=== PATIENT | male | born 1990 ===

== ENCOUNTER 2017-03-27 07:26 | Emergency (ER) | payer OTHER ==
[2017-03-27 07:51] VITALS: BP 117/71; PULSE 96; RESP 18; TEMP 98.2; O2SAT 98; BMI 37.5
--- NOTE | 2017-03-27 08:04 | ED PDOC ---
Arrival/HPI - General Chief Complaint: Abnormal Skin Integrity Time Seen by Provider: 03/27/17 07:31 Historian: Patient - History of Present Illness Narrative History of Present Illness (Text): 03/27/17 07:58 A 26 year old male, who denies any significant past medical history, presents to the emergency department complaining of multiple rashes to the right arm and right lower back. Patient reports he was at a friends house 3 days ago and believes he was bitten by some kind of bug. Patient states he is unsure of what kind of bug bit him because he did not realize he was bitten under the next day when he developed pain and notices the redness to the skin. Patient denies any fever, chills, nausea, vomiting, or any other complaints at this time. PMD: Dr. Colindres Time/Duration: Other (3 days) Symptom Onset: Gradual Symptom Course: Worsening Quality: Other Activities at Onset: Rest Context: Other (friends home) Past Medical History - Provider Review Nursing Documentation Reviewed: Yes - Psychiatric Hx Substance Use: Yes Family/Social History - Physician Review Nursing Documentation Reviewed: Yes Family/Social History: Unknown Family HX Smoking Status: Light Smoker < 10 Cigarettes Daily Hx Alcohol Use: Yes Frequency of alcohol use: Socially Hx Substance Use: Yes Substance used: pot Allergies/Home Meds Allergies/Adverse Reactions: Allergies No Known Allergies Allergy (Verified 03/27/17 07:46) Review of Systems - Physician Review All systems were reviewed & negative as marked: Yes - Review of Systems Constitutional: absent: Fevers, Other (chills) Gastrointestinal: absent: Nausea, Vomiting Skin: Rash Physical Exam - Physical Exam Narrative Physical Exam (Text): Constitutional: No acute distress. Head: Normocephalic. Atraumatic. Eyes: PERRL. ENT: Moist mucous membranes. Neck: Supple. Cardiovascular: Regular rate. Chest: No tenderness. Respiratory: Clear to auscultation bilaterally. GI: Soft. Nontender. Nondistended. Back: No CVA tenderness. Musculoskeletal: No tenderness or swelling of extremities. Skin: Central wound with surround erythema and induration with tenderness to palpation to the right forearm but no fluctuance or drainage (even when patient squeezed). Erythema around the right elbow without restriction in range of motion. Central wound with surround erythema which tenderness to palpation to the right flank but no fluctuance or induration or drainage. Neurologic: Alert, no focal deficit. Vital Signs Reviewed: Yes Vital Signs Temp Pulse Resp BP Pulse Ox 03/27/17 07:46 98.2 F 96 H 18 117/71 98 Temperature: Afebrile Blood Pressure: Normal Pulse: Regular Respiratory Rate: Normal Appearance: Positive for: Well-Appearing, Non-Toxic, Comfortable Pain Distress: None Mental Status: Positive for: Alert and Oriented X 3 Medical Decision Making ED Course and Treatment: 03/27/17 07:58 Impression: A 26 year old male with multiple rashes which appear to be due to bug bite. Differential Diagnosis include but are not limited to: bug bite Plan: -- Finger Stick -- Reassess and disposition Progress Notes: 03/27/17 08:08 Patient finger stick is 74. On re-evaluation, the patient is in no acute distress. I have discussed the results and plan with the patient, who expresses understanding. Patient in agreement with plan to discharged home. Patient is stable for discharge. Patient was instructed to follow up with physician/clinic in 1-2 days or return if symptoms worsen or new concerning symptoms arise. - Scribe Statement The provider has reviewed the documentation as recorded by the Scribe Wolfgang Headley Provider Scribe Attestation: All medical record entries made by the Scribe were at my direction and personally dictated by me. I have reviewed the chart and agree that the record accurately reflects my personal performance of the history, physical exam, medical decision making, and the department course for this patient. I have also personally directed, reviewed, and agree with the discharge instructions and disposition. Disposition/Present on Arrival - Present on Arrival Any Indicators Present on Arrival: No History of DVT/PE: No History of Uncontrolled Diabetes: No Urinary Catheter: No History of Decub. Ulcer: No History Surgical Site Infection Following: None - Disposition Have Diagnosis and Disposition been Completed?: Yes Diagnosis: Bug bite with infection Disposition: HOME/ ROUTINE Disposition Time: 08:08 Patient Plan: Discharge Patient Problems: Current Active Problems Problem Status Onset Bug bite with infection Acute Condition: STABLE Discharge Instructions (ExitCare): Insect Bite or Sting (ED) Prescriptions: Cephalexin [Keflex] 500 mg PO TID #30 capsule Sulfamethoxazole/Trimethoprim [Bactrim DS 800 mg-160 mg] 1 tab PO BID #20 tab Referrals: Juan F Colindres MD [Primary Care Provider] - Follow up with primary Forms: WORK NOTE
== END 2017-03-27 08:33 | disposition home or self-care (01) ==
LOC: ED 07:26
DX: S50.861A Insect bite (nonvenomous) of right forearm, initial encounter (principal); W57.XXXA Bitten or stung by nonvenomous insect and other nonvenomous arthropods, initial encounter; Y92.009 Unspecified place in unspecified non-institutional (private) residence as the place of occurrence of the external cause; F17.210 Nicotine dependence, cigarettes, uncomplicated

== ENCOUNTER 2017-04-08 08:58 | Inpatient (IN) | payer OTHER ==
[2017-04-08] MEDS ORDERED: Sodium Chloride 0.9% 1,000 ML IV ONE (09:26)
[2017-04-08] MEDS ORDERED: DiphenhydrAMINE 50 mg/ml Inj IVP ONE (09:26)
--- NOTE | 2017-04-08 09:28 | ED PDOC ---
Arrival/HPI - General Chief Complaint: Allergic Reaction Time Seen by Provider: 04/08/17 09:11 Historian: Patient - History of Present Illness Narrative History of Present Illness (Text): 04/08/17 09:25 A 26 year old male presents to the emergency department complaining of a progressively worsening itchy rash throughout his body since last night. Patient reports his symptom began after taking Doxycycline yesterday night at 21 :00. He states this medication was prescribed to him by his PMD to treat a spider bite. Patient denies any fever, chills, nausea, vomiting, diarrhea, abdominal pain, chest pain, shortness of breath, difficulty swallowing or any other complaints. PMD: Dr. Colindres Time/Duration: Other (Last night) Symptom Course: Unchanged Quality: Other Context: Home Associated Symptoms (Text): 04/08/17 09:34 Patient was bitten by an unknown insect approximately 2 weeks ago. He was seen in the emergency department and treated with Keflex and Bactrim. He states that the right forearm insect bite did not improve and he saw his PMD Dr. Colindres who prescribed doxycycline. He took doxycycline for the first time last night and overnight developed a severe generalized drug rash. No dyspnea or dysphagia. Past Medical History - Provider Review Nursing Documentation Reviewed: Yes - Cardiac Hx Cardiac Disorders: No - Pulmonary Hx Respiratory Disorders: No - Neurological Hx Neurological Disorder: No - HEENT Hx HEENT Disorder: No - Renal Hx Renal Disorder: No - Endocrine/Metabolic Hx Endocrine Disorders: No - Hematological/Oncological Hx Blood Disorders: No - Integumentary Other/Comment: SKIN INFECTION - Musculoskeletal/Rheumatological Hx Musculoskeletal Disorders: No - Gastrointestinal Hx Gastrointestinal Disorders: No - Genitourinary/Gynecological Hx Genitourinary Disorders: No - Psychiatric Hx Psychophysiologic Disorder: No Hx Substance Use: Yes Family/Social History - Physician Review Nursing Documentation Reviewed: Yes Family/Social History: No Known Family HX Smoking Status: Light Smoker < 10 Cigarettes Daily Hx Alcohol Use: Yes Frequency of alcohol use: Socially Hx Substance Use: Yes Substance used: pot Allergies/Home Meds Allergies/Adverse Reactions: Allergies No Known Allergies Allergy (Verified 04/08/17 09:08) Home Medications: Home Meds Medication Instructions Recorded Confirmed Doxycycline Hyclate [Doryx] 100 mg PO Q12 04/08/17 04/08/17 Review of Systems - Physician Review All systems were reviewed & negative as marked: Yes - Review of Systems Constitutional: absent: Fatigue, Fevers, Night Sweats ENT: absent: Sore Throat Respiratory: absent: SOB, Other (Difficulty swallowing) Cardiovascular: absent: Chest Pain Gastrointestinal: absent: Abdominal Pain, Diarrhea, Nausea, Vomiting Skin: Rash (itchy rash throughout body) Physical Exam Vital Signs Reviewed: Yes Vital Signs Temp Pulse Resp BP Pulse Ox 04/08/17 13:18 91 H 18 121/61 99 04/08/17 13:12 89 18 119/58 L 04/08/17 12:05 89 18 119/58 L 99 04/08/17 11:13 99.4 F 96 H 18 117/52 L 99 04/08/17 10:13 101.6 F H 103 H 16 115/48 L 97 04/08/17 09:10 100.7 F H 118 H 17 99/51 L 98 Temperature: Febrile Blood Pressure: Hypotensive Pulse: Tachycardic Respiratory Rate: Normal Appearance: Positive for: Well-Appearing, Non-Toxic, Comfortable Pain Distress: None Mental Status: Positive for: Alert and Oriented X 3 - Systems Exam Head: Present: Atraumatic, Normocephalic Pupils: Present: PERRL Extroacular Muscles: Present: EOMI Conjunctiva: Present: Normal Mouth: Present: Moist Mucous Membranes, Other (Hard palate has some minimal vesicles) Pharnyx: Present: Normal. No: ERYTHEMA, EXUDATE, TONSILS ENLARGED, Peritonsilar Swelling, Uvular Deviation, Soft Palate/Uvular Edema Respiratory/Chest: Present: Clear to Auscultation, Good Air Exchange. No: Respiratory Distress, Accessory Muscle Use, Wheezes Cardiovascular: Present: Regular Rate and Rhythm, Normal S1, S2. No: Murmurs Neurological: Present: GCS=15, CN II-XII Intact, Speech Normal Skin: Present: Warm, Dry, Rashes (flat erythematous pruritic rash, consistent with drug rash), Other (Right forearm 3 cm in diameter erythematous bite with mild induration and no abscess) Psychiatric: Present: Alert, Oriented x 3, Normal Insight, Normal Concentration Medical Decision Making ED Course and Treatment: 04/08/17 09:25 Impression: A 26 year old male with a itchy rash throughout his body. Patient notes symptom began after taking Doxycycline for a spider bite. Plan: -- Benadryl, Solumedrol and IV fluids -- Reassess and disposition Progress Notes: 04/08/17 10:17 Patient's temperature has increased. Blood work has been ordered 04/08/17 11:57 EKG shows sinus tachycardia rate [address] or T-wave changes 04/08/17 11:[address] Colindres who refers to the hospitalist for admission. Discussed with Dr.I Villa who accepts to her service. Discussed with who treated the patient in the emergency department 04/08/17 13:52 Antibiotic choice left to infectious disease - Lab Interpretations Lab Results: 04/08/17 10:20 04/08/17 11:07 Lab Results 04/08/17 11:38: Urine Color Yellow, Urine Appearance Clear, Urine pH 6.0, Ur Specific Dudley 1.020, Urine Protein Negative, Urine Glucose (UA) Negative, Urine Ketones Negative, Urine Blood Negative, Urine Nitrate Negative, Urine Bilirubin Negative, Urine Urobilinogen 0.2, Ur Leukocyte Esterase Negative 04/08/17 11:07: Sodium 134, Chloride 105, Potassium 4.1, Carbon Dioxide 22, Anion Gap 11, BUN 15, Creatinine 1.2, Est GFR ( Amer) > 60, Est GFR (Non- Af Amer) > 60, Random Glucose 108, Calcium 9.0, Total Bilirubin 0.9, AST 24, ALT 45, Alkaline Phosphatase 74, Total Protein 6.6, Albumin 3.5, Globulin 3.1, Albumin/Globulin Ratio 1.1 04/08/17 10:20: pO2 157 H, VBG pH 7.44 H, VBG pCO2 33.0 L, VBG HCO3 22.4, VBG Total CO2 23.4, VBG O2 Sat (Calc) 100.1 H, VBG Base Excess -1.1 L, VBG Potassium 4.3, Sodium 135.0, Chloride 106.0, Glucose 106, Lactate 2.6 H, FiO2 21.0, Venous Blood Potassium 4.3 04/08/17 10:20: WBC 13.1 H, RBC 4.31, Hgb 12.4 L, Hct 36.4 L, MCV 84.5, MCH 28.8 , MCHC 34.1, RDW 13.1, Plt Count 270, MPV 10.6, Neutrophils % (Manual) 97 H, Lymphocytes % (Manual) 2 L, Monocytes % (Manual) 1, Toxic Granulation 1+, Platelet Evaluation Normal, Hypochromasia 2+, Rouleaux 1+ - RAD Interpretation Radiology Orders: 04/08/17 11:02 CHEST PORTABLE [RAD] Stat Chest 1 view shows no infiltrate effusion or cardiomegaly Plaster Patternmaker: ED Physician - Medication Orders Current Medication Orders: Diphenhydramine HCl (Benadryl) 25 mg PO Q6 PRN PRN Reason: Itching / Pruritus Famotidine (Pepcid) 20 mg IVP DAILY CONOR Last Admin: 04/08/17 13:43 Dose: 20 mg Sodium Chloride (Sodium Chloride 0.9%) 1,000 mls @ 100 mls/hr IV .Q10H CONOR Last Admin: 04/08/17 13:43 Dose: 100 mls/hr Discontinued Medications Acetaminophen (Tylenol 325mg Tab) 650 mg PO STAT STA Stop: 04/08/17 09:56 Last Admin: 04/08/17 10:10 Dose: 650 mg Diphenhydramine HCl (Benadryl) 50 mg IVP ONCE ONE Stop: 04/08/17 09:27 Last Admin: 04/08/17 09:33 Dose: 50 mg Sodium Chloride (Sodium Chloride 0.9%) 1,000 mls @ 500 mls/hr IV ONCE ONE Stop: 04/08/17 11:25 Last Admin: 04/08/17 09:35 Dose: 500 mls/hr Sodium Chloride 3,000 ml/ IV (SUPPLIES) 3,000 mls @ 6,967.2 mls/hr IV ONCE ONE PRN Reason: 60 ML/KG/HR Stop: 04/08/17 11:03 Last Admin: 04/08/17 11:24 Dose: 6,967.2 mls/hr Methylprednisolone (Solu-Medrol) 125 mg IVP ONCE ONE Stop: 04/08/17 09:27 Last Admin: 04/08/17 09:34 Dose: 125 mg - Catalinaibe Statement The provider has reviewed the documentation as recorded by the Cherie Johnson Provider Scribe Attestation: All medical record entries made by the aCtalinaibmarcos were at my direction and personally dictated by me. I have reviewed the chart and agree that the record accurately reflects my personal performance of the history, physical exam, medical decision making, and the department course for this patient. I have also personally directed, reviewed, and agree with the discharge instructions and disposition. Disposition/Present on Arrival - Present on Arrival Any Indicators Present on Arrival: No History of DVT/PE: No History of Uncontrolled Diabetes: No Urinary Catheter: No History of Decub. Ulcer: No History Surgical Site Infection Following: None - Disposition Have Diagnosis and Disposition been Completed?: Yes Diagnosis: Guevara-Luis syndrome, Sepsis, Leukocytosis, Allergic reaction Disposition: HOSPITALIZED Disposition Time: 11:51 Patient Plan: Admission Patient Problems: Current Active Problems Problem Status Onset Allergic reaction Acute Leukocytosis Acute Sepsis Acute Guevara-Luis syndrome Acute Condition: FAIR
[2017-04-08 10:47] LABS: HEMATOCRIT 36.4 % (42.0-52.0); MEAN CELL VOLUME 84.5 fL (80.0-105.0); MEAN CORPUSCULAR HEMOGLOBIN 28.8 pg (25.0-35.0); MEAN CORPUSCULAR HGB CONC 34.1 g/dl (31.0-37.0); MEAN PLATELET VOLUME 10.6 fl (7.0-11.0); PLATELET COUNT 270 10^3/uL (120.0-450.0); RED CELL DISTRIBUTION WIDTH 13.1 % (11.5-14.5); WHITE BLOOD COUNT 13.1 10^3/ul (4.5-11.0)
[2017-04-08 10:48] LABS: ADD MANUAL DIFF? YES
[2017-04-08 10:54] LABS: VENOUS BLOOD GAS BASE EXCESS -1.1 mmol/L (0.0-2.0); VENOUS BLOOD PH 7.44 (7.32-7.43)
[2017-04-08 11:24] LABS: ALB/GLOB RATIO 1.1 (1.1-1.8); ALKALINE PHOSPHATASE 74 U/L (38-133); ALT/SGPT 45 U/L (7-56); AST/SGOT 24 U/L (15-59); BILIRUBIN,TOTAL 0.9 mg/dL (0.2-1.3); BLOOD UREA NITROGEN 15 mg/dL (7-21); CARBON DIOXIDE 22 mmol/L (21-33); CHLORIDE 105 mmol/L (98-107); GFR AFRICAN-AMERICAN > 60; GLUCOSE,RANDOM 108 mg/dL (70-110); POTASSIUM 4.1 mmol/L (3.6-5.0); SODIUM 134 mmol/L (132-148); TOTAL PROTEIN 6.6 g/dL (5.8-8.3)
[2017-04-08 11:43] LABS: URINE BILIRUBIN NEGATIVE (NEGATIVE); URINE BLOOD NEGATIVE (NEGATIVE); URINE GLUCOSE (UA) NEGATIVE (NEGATIVE); URINE KETONE NEGATIVE (NEGATIVE); URINE LEUKOCYTE ESTERASE NEGATIVE Leu/uL (NEGATIVE); URINE UROBILINOGEN 0.2 E.U./dL (<1 E.U./dL)
[2017-04-08 11:50] LABS: HYPOCHROMIA 2+; NEUTROPHIL 97 % (50.0-70.0); PLATELET ESTIMATE NORMAL (NORMAL)
[2017-04-08 11:51] LABS: TOXIC GRANULATION 1+
[2017-04-08 11:53] LABS: URINE APPEARANCE CLEAR (CLEAR); URINE COLOR YELLOW (YELLOW); URINE PROTEIN NEGATIVE mg/dL (<30 mg/dL)
--- NOTE | 2017-04-08 12:34 | RAD ---
HISTORY: Sepsis Patient COMPARISON: No prior. FINDINGS: LUNGS: No active pulmonary disease. PLEURA: No significant pleural effusion identified, no pneumothorax apparent. CARDIOVASCULAR: Normal. OSSEOUS STRUCTURES: No significant abnormalities. VISUALIZED UPPER ABDOMEN: Normal. OTHER FINDINGS: None. IMPRESSION: No active disease. No preliminary interpretation rendered by the emergency department physician
--- NOTE | 2017-04-08 12:36 | CP.PCM.HP ---
<Dakota Ziegler - Last Filed: 04/08/17 12:40> History of Present Illness - History of Present Illness History of Present Illness: This is a 26 yo male with no past medical hx presenting with cc rash. Roughly 2 weeks ago, pt was out with friend and noticed bite on right forearm and also bite around right elbow. It was with some swelling and redness and he believes he may have been bitten by a spider at work. 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 He came to [facility]. The bite was not drained but he was rx 2 abx, bactrim and keflex. Shortly after, he visited Dr. Colindres because he felt it was not getting better. Dr. Colindres told him not to take keflex and rx doxycycline instead. Soon after, pt developed rash covering extremities and trunk with associated fever 101. Never happened before. Denies cp, sob, fevers currently, chills, vomiting, diarrhea. PMH: None PSH: None Allergies: NKDA FH: none Social hx: current smoker. 1 pack per week. No drinking or drugs. Lives with mother. Present on Admission - Present on Admission Any Indicators Present on Admission: No History of DVT/PE: No History of Uncontrolled Diabetes: No Urinary Catheter: No Decubitus Ulcer Present: No Review of Systems - Review of Systems All systems: reviewed and no additional remarkable complaints except Review of Systems: Negative except for HPI. Past Patient History - Infectious Disease Hx of Infectious Diseases: None - Tetanus Immunizations Tetanus Immunization: Unknown - Past Medical History & Family History Past Medical History?: No Past Family History: Reviewed and not pertinent - Past Social History Smoking Status: Light Smoker < 10 Cigarettes Daily Chewing Tobacco Use: No Cigar Use: No Alcohol: None Drugs: Denies Home Situation {Lives}: With Family Domestic Violence: Negative - CARDIAC Hx Cardiac Disorders: No - PULMONARY Hx Respiratory Disorders: No - NEUROLOGICAL Hx Neurological Disorder: No - HEENT Hx HEENT Problems: No - RENAL Hx Chronic Kidney Disease: No - ENDOCRINE/METABOLIC Hx Endocrine Disorders: No - HEMATOLOGICAL/ONCOLOGICAL Hx Blood Disorders: No - INTEGUMENTARY Other/Comment: SKIN INFECTION - MUSCULOSKELETAL/RHEUMATOLOGICAL Hx Musculoskeletal Disorders: No - GASTROINTESTINAL Hx Gastrointestinal Disorders: No - GENITOURINARY/GYNECOLOGICAL Hx Genitourinary Disorders: No - PSYCHIATRIC Hx Psychophysiologic Disorder: No Hx Substance Use: Yes - SURGICAL HISTORY Hx Surgeries: No Meds Allergies/Adverse Reactions: Allergies Allergy/AdvReac Type Severity Reaction Status Date / Time No Known Allergies Allergy Verified 04/08/17 09:08 Physical Exam - Constitutional Appears: Non-toxic, No Acute Distress - Head Exam Head Exam: ATRAUMATIC, NORMAL INSPECTION, NORMOCEPHALIC - Eye Exam Eye Exam: EOMI - ENT Exam ENT Exam: Mucous Membranes Moist - Neck Exam Neck exam: Positive for: Full Rom, Normal Inspection - Respiratory Exam Respiratory Exam: NORMAL BREATHING PATTERN. absent: Respiratory Distress - Cardiovascular Exam Cardiovascular Exam: +S1, +S2 - GI/Abdominal Exam GI & Abdominal Exam: Normal Bowel Sounds, Soft. absent: Tenderness - Extremities Exam Extremities exam: Negative for: normal inspection Additional comments: left forearm swelling, abscess, with no drainage, no cellulitis - Neurological Exam Neurological exam: Alert, CN II-XII Intact - Psychiatric Exam Psychiatric exam: Normal Affect, Normal Mood - Skin Additional comments: Diffuse maculopapular rash covering extremities and trunk, no vesicles or pustules. Negative Nikolsky Results - Vital Signs Recent Vital Signs: Last Vital Signs Temp 99.4 F 04/08/17 11:13 Pulse 89 04/08/17 12:05 Resp 18 04/08/17 12:05 BP 119/58 L 04/08/17 12:05 Pulse Ox 99 04/08/17 12:05 - Labs Result Diagrams: 04/08/17 10:20 04/08/17 11:07 Assessment & Plan - Assessment and Plan (Free Text) Assessment: This is a 26 yo male with no reported past medical hx presenting with rash 1 Drug rash secondary to bactrim/ Guevara Luis syndrome -ID consult. Dr. Merritt. recs appreciated. -NS at 100 cc/hr -benadryl po 25 q 6 prn itchiness -received benadryl and solumedrol in ER -will defer abx to ID -blood culture pending 2. GI/DVT ppx -scds -pepcid daily discussed with Dr. Villa <Chaparro Villa B - Last Filed: 04/08/17 16:21> Results - Vital Signs Recent Vital Signs: Last Vital Signs Temp 97.9 F 04/08/17 15:40 Pulse 79 04/08/17 15:29 Resp 18 04/08/17 15:29 BP 116/69 04/08/17 15:29 Pulse Ox 99 04/08/17 15:29 - Labs Result Diagrams: 04/08/17 10:20 04/08/17 11:07 Labs: Laboratory Results - last 24 hr 04/08/17 14:12 pO2 51 VBG pH 7.35 VBG pCO2 38.0 L VBG HCO3 21.0 VBG Total CO2 22.2 VBG O2 Sat (Calc) 90.6 H VBG Base Excess -4.2 L VBG Potassium 4.1 Sodium 136.0 Chloride 108.0 H Glucose 186 H Lactate 2.6 H FiO2 21.0 Venous Blood Potassium 4.1 Attending/Attestation - Attestation I have personally seen and examined this patient.: Yes I have fully participated in the care of the patient.: Yes I have reviewed all pertinent clinical information: Yes Notes (Text): I have seen and examined patient with the resident. Agree with the H&P outlined by the resident with the following additions/ exceptions: Briefly this is 26 year old male who recently had a spider / insect bite on his right elbow and was discharged home on keflex and bactrim went to his pmd for followup. As his wound was not getting better, keflex was stopped and doxycycline was suggested in addition to bactrim which he took last night. Subsequently he developed macular erythematous rash with purpuric centers all over the body which was initially pruritic vs tender along with fever. Skin is not tender at this time. There are no oral, ocular, urogenital or mucosal involvement. There is no epidermal sloughing at this time. 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 Patient has leukocytosis with neutrophilia. Other labs are within normal limits. Will order HIV, TSH and YA. Will hold off on starting antibiotics at this time. Will discuss with ID. Patient was given a dose of solumderol in ED. Will start a short course of solumedrol. Tobacco cessation counselling provided. Upon discharge patient will follow up with Dr Colindres. Dr Chaparro Villa
[2017-04-08] MEDS ORDERED: Sodium Chloride 0.9% 1,000 ML IV SCH (12:45)
[2017-04-08 13:19] VITALS: BMI 35.6
[2017-04-08 14:22] LABS: VENOUS BLOOD GAS BASE EXCESS -4.2 mmol/L (0.0-2.0); VENOUS BLOOD PH 7.35 (7.32-7.43)
--- NOTE | 2017-04-08 19:16 | CON ---
DATE: 04/08/2017 The patient was seen earlier today in the Emergency Room, the patient's mother at the bedside. CHIEF COMPLAINT: Rash x 1 day. HISTORY OF PRESENT ILLNESS: This is a 26-year-old male with no significant past medical history who was seen in the Emergency Room on 03/27/2017. At that time he was seen by Dr. Alfonzo Perez in the Emerg ency Room with the complaint of a right arm skin rash, which at the time he was given Bactrim and Kef linwood almost 2 weeks ago. The patient has been on the Bactrim and Keflex and patient was switched to d oxycycline. However, he developed a severe rash and now almost 2 weeks of Bactrim and was admitted w ith a fever and rash through the Emergency Room. The patient was seen in the Emergency Room by Dr. Valdemar boyer. The patient has no nausea, no vomiting. He is having some headaches. No abdominal pain. He feels the rash occurred after the doxycycline that he took for what was thought to be a spid er bite. He denied any nausea or vomiting, no diarrhea, no abdominal pain, no chest pain, shortness of breath, no difficulty swallowing. PAST MEDICAL HISTORY: Noncontributory. PAST SURGICAL HISTORY: Noncontributory. ALLERGIES: The patient has no previous allergies. MEDICATIONS: He was on for almost 2 weeks of Bactrim and he was also on Keflex. Now he took 1 dose of doxycycline. His medications are reviewed. SOCIAL HISTORY: He is not a smoker, not a drinker and no intravenous drug abuse. His mother is pres ent at the Emergency Room. PHYSICAL EXAMINATION: GENERAL: He is in bed, answering questions appropriately. VITAL SIGNS: Temperature is 97, T-max was 101.6. Heart rate is 91 and it was up to 118. A respirat ory rate of 18, it was up to 20 with a blood pressure of 121/61 and it was down to 99/51. HEENT: Unremarkable. The oral cavity and the mucosa is not involved. NECK: Supple. LUNGS: Have decreased breath sounds. HEART: Normal S1, S2. ABDOMEN: Soft, nontender, no organomegaly, no rebound or guarding. SKIN: There is a morbilliform maculopapular rash of significant degree of rash on his entire body an d not involving his palms and soles. It involves his face, his chest, his legs and his arms. LABORATORY EXAMINATION: Reveals a white count of 13,000, hemoglobin of 12, platelets of 270. There are 97% neutrophils. Blood gases are noted and reviewed. The patient's chemistries reveals that the LFTs are all within normal limits. The creatinine is 1.2. Urinalysis is unremarkable. The patient had a chest x-ray, which was reported to be negative. The EKG was done, but no report is available. ASSESSMENT AND PLAN: This is a 26-year-old male who has been treated with Bactrim and Keflex for kristin ost 2 weeks for a right arm, what appears to be a methicillin-resistant Staphylococcus aureus infecti on of the right arm and exam of the right arm reveals a quarter-sized lesion, flexor side of his arm, with erythematous area around it, now has developed a maculopapular rash. 1. Sepsis with a right arm cellulitis and methicillin-resistant Staphylococcus aureus lesion and com plicated by a probable what appears to be is a Bactrim-induced allergic reaction, but appears to be a maculopapular allergic reaction to Bactrim and I do not believe that this is as of now a Guevara-Rainer nson syndrome or Sweet syndrome and it does not appear to be toxic epidermal necrolysis. Would stron gly recommend no further Bactrim. I do not believe this to be doxycycline related. With urinalysis being normal and a normal renal function, speaks against the Bactrim tubular secretion of creatinine and Bactrim affecting the distal tubular secretion of potassium, but having normal chemistries. Revi ew of the chemistries reveals the patient has essentially unremarkable chemistries. Lactic acidosis can occur from Bactrim as a Bactrim side effect, but the patient appears to have normal LFTs, normal renal function and a completely normal urinalysis. The patient does have a lactate of 2.6 on the ABG . HIV has been ordered. YA has been ordered. Blood cultures and urine cultures have been ordered and since the patient's headaches are probably from the Bactrim also that has been well described and Bactrim has been noted to have aseptic meningitis and will follow closely with you. Will order Zyvo x in this patient for the right arm what appears to be a MRSA lesion and will also order a MRSA nasal screening. I will follow closely with you. Jhonathan Merritt MD cc: 350 TT: 04/08/2017 19:15:47 Confirmation # [id number] Dictation # [id number] mn
[2017-04-08] MEDS: MethylPREDNISolone 40 mg Vial IVP SCH (21:49)
[2017-04-08] MEDS: Linezolid 600 mg in D5W 300 ml 600 MG/300 ML BAG IVPB SCH (21:51)
[2017-04-09 08:29] LABS: HEMATOCRIT 35.9 % (42.0-52.0); MEAN CELL VOLUME 85.1 fL (80.0-105.0); MEAN CORPUSCULAR HGB CONC 32.9 g/dl (31.0-37.0); MEAN PLATELET VOLUME 10.6 fl (7.0-11.0); PLATELET COUNT 253 10^3/uL (120.0-450.0); RED CELL DISTRIBUTION WIDTH 13.4 % (11.5-14.5); WHITE BLOOD COUNT 20.6 10^3/ul (4.5-11.0)
[2017-04-09 08:34] LABS: ADD MANUAL DIFF? YES
[2017-04-09 08:35] LABS: ALB/GLOB RATIO 1.1 (1.1-1.8); ALKALINE PHOSPHATASE 62 U/L (38-133); ALT/SGPT 45 U/L (7-56); AST/SGOT 26 U/L (15-59); BILIRUBIN,TOTAL 0.4 mg/dL (0.2-1.3); BLOOD UREA NITROGEN 9 mg/dL (7-21); CALCIUM 8.7 mg/dL (8.4-10.5); CARBON DIOXIDE 23 mmol/L (21-33); CHLORIDE 109 mmol/L (95-110); GFR AFRICAN-AMERICAN > 60; GLUCOSE,RANDOM 112 mg/dL (70-110); MAGNESIUM 1.8 mg/dL (1.7-2.2); POTASSIUM 4.4 mmol/L (3.6-5.0); SODIUM 139 mmol/L (132-148); TOTAL PROTEIN 6.5 g/dL (5.8-8.3)
[2017-04-09 08:56] LABS: BAND 5 % (0-2); NEUTROPHIL 93 % (50.0-70.0)
[2017-04-09 09:09] LABS: ANISOCYTOSIS 1+; HYPOCHROMIA 1+; LARGE PLATELETS PRESENT; PLATELET ESTIMATE NORMAL (NORMAL); POLYCHROMASIA SLIGHT
--- NOTE | 2017-04-09 09:17 | CARD ---
APPROVED REPORT EKG Measurement Heart [id number] <Conclusion> Sinus tachycardia Incomplete right bundle branch block
[2017-04-09 09:18] LABS: OVALOCYTES SLIGHT
[2017-04-09 09:50] VITALS: BP 124/78; PULSE 71; RESP 18; TEMP 98.6; O2SAT 95
--- NOTE | 2017-04-09 10:47 | CP.PCM.DIS ---
<Dakota Ziegler - Last Filed: 04/09/17 10:50> Provider - Provider Date of Admission: 04/08/17 12:02 Attending physician: Syed Carpenter MD Primary care physician: Juan F Colindres MD Consults: SEJAL Merritt Time Spent in preparation of Discharge (in minutes): 45 Hospital Course - Lab Results Lab Results: Most Recent Lab Values WBC 20.6 10^3/ul (4.5-11.0) H D 04/09/17 08:00 RBC 4.22 10^6/uL (3.5-6.1) 04/09/17 08:00 Hgb 11.8 gm/dL (14.0-18.0) L 04/09/17 08:00 Hct 35.9 % (42.0-52.0) L 04/09/17 08:00 MCV 85.1 fL (80.0-105.0) 04/09/17 08:00 MCH 28.0 pg (25.0-35.0) 04/09/17 08:00 MCHC 32.9 g/dl (31.0-37.0) 04/09/17 08:00 RDW 13.4 % (11.5-14.5) 04/09/17 08:00 Plt Count 253 10^3/uL (120.0-450.0) 04/09/17 08:00 MPV 10.6 fl (7.0-11.0) 04/09/17 08:00 Neutrophils % (Manual) 93 % (50.0-70.0) H 04/09/17 08:00 Band Neutrophils % 5 % (0-2) H 04/09/17 08:00 Lymphocytes % (Manual) 2 % (22.0-35.0) L 04/09/17 08:00 Monocytes % (Manual) TEST NOT PERFORMED 04/09/17 08:00 Toxic Granulation 1+ 04/08/17 10:20 Platelet Evaluation Normal (NORMAL) 04/09/17 08:00 Large Platelets Present 04/09/17 08:00 Polychromasia Slight 04/09/17 08:00 Hypochromasia 1+ 04/09/17 08:00 Anisocytosis (manual) 1+ 04/09/17 08:00 Ovalocytes Slight 04/09/17 08:00 Rouleaux 1+ 04/08/17 10:20 pO2 51 mm/Hg (30-55) 04/08/17 14:12 VBG pH 7.35 (7.32-7.43) 04/08/17 14:12 VBG pCO2 38.0 (40-60) L 04/08/17 14:12 VBG HCO3 21.0 mmol/l (21-28) 04/08/17 14:12 VBG Total CO2 22.2 mmol.L (22-28) 04/08/17 14:12 VBG O2 Sat (Calc) 90.6 % (40-65) H 04/08/17 14:12 VBG Base Excess -4.2 mmol/L (0.0-2.0) L 04/08/17 14:12 VBG Potassium 4.1 mmol/L (3.6-5.2) 04/08/17 14:12 Sodium 136.0 mmol/L (132-148) 04/08/17 14:12 Chloride 108.0 mmol/L (98-107) H 04/08/17 14:12 Glucose 186 mg/dl (75-110) H 04/08/17 14:12 Lactate 2.6 mmol/L (0.7-2.1) H 04/08/17 14:12 FiO2 21.0 % 04/08/17 14:12 Sodium 139 mmol/L (132-148) 04/09/17 08:00 Potassium 4.4 mmol/L (3.6-5.0) 04/09/17 08:00 Chloride 109 mmol/L (95-110) 04/09/17 08:00 Carbon Dioxide 23 mmol/L (21-33) 04/09/17 08:00 Anion Gap 11 (10-20) 04/09/17 08:00 BUN 9 mg/dL (7-21) 04/09/17 08:00 Creatinine 0.7 mg/dL (0.5-1.4) 04/09/17 08:00 Est GFR ( Amer) > 60 04/09/17 08:00 Est GFR (Non-Af Amer) > 60 04/09/17 08:00 Random Glucose 112 mg/dL (70-110) H 04/09/17 08:00 Calcium 8.7 mg/dL (8.4-10.5) 04/09/17 08:00 Phosphorus 3.0 mg/dL (2.5-4.5) 04/09/17 08:00 Magnesium 1.8 mg/dL (1.7-2.2) 04/09/17 08:00 Total Bilirubin 0.4 mg/dL (0.2-1.3) 04/09/17 08:00 AST 26 U/L (15-59) 04/09/17 08:00 ALT 45 U/L (7-56) 04/09/17 08:00 Alkaline Phosphatase 62 U/L (38-133) 04/09/17 08:00 Total Protein 6.5 g/dL (5.8-8.3) 04/09/17 08:00 Albumin 3.5 g/dL (3.0-4.8) 04/09/17 08:00 Globulin 3.1 gm/dL 04/09/17 08:00 Albumin/Globulin Ratio 1.1 (1.1-1.8) 04/09/17 08:00 Procalcitonin 1.58 NG/ML (0.19-0.49) H 04/08/17 11:07 TSH 3rd Generation 1.32 mIU/mL (0.46-4.68) 04/09/17 08:00 Venous Blood Potassium 4.1 mmol/L (3.6-5.2) 04/08/17 14:12 Urine Color Yellow (YELLOW) 04/08/17 11:38 Urine Appearance Clear (CLEAR) 04/08/17 11:38 Urine pH 6.0 (4.7-8.0) 04/08/17 11:38 Ur Specific [place] 1.020 (1.005-1.035) 04/08/17 11:38 Urine Protein Negative mg/dL (<30 mg/dL) 04/08/17 11:38 Urine Glucose (UA) Negative mg/dL (NEGATIVE) 04/08/17 11:38 Urine Ketones Negative mg/dL (NEGATIVE) 04/08/17 11:38 Urine Blood Negative (NEGATIVE) 04/08/17 11:38 Urine Nitrate Negative (NEGATIVE) 04/08/17 11:38 Urine Bilirubin Negative (NEGATIVE) 04/08/17 11:38 Urine Urobilinogen 0.2 E.U./dL (<1 E.U./dL) 04/08/17 11:38 Ur Leukocyte Esterase Negative Jaiden/uL (NEGATIVE) 04/08/17 11:38 Urine Opiates Screen Negative (NEGATIVE) 04/08/17 18:00 Urine Methadone Screen Negative (NEGATIVE) 04/08/17 18:00 Ur Barbiturates Screen Negative (NEGATIVE) 04/08/17 18:00 Ur Phencyclidine Scrn Negative (NEGATIVE) 04/08/17 18:00 Ur Amphetamines Screen Negative (NEGATIVE) 04/08/17 18:00 U Benzodiazepines Scrn Negative (NEGATIVE) 04/08/17 18:00 U Oth Cocaine Metabols Negative (NEGATIVE) 04/08/17 18:00 U Cannabinoids Screen Negative (NEGATIVE) 04/08/17 18:00 - Hospital Course Hospital Course: Attending: Dr. Villa/Pauline Admit date- 04/08 DC date- 04/09 Stable for dc Procedures- none Complications - none Consults Shaina Discharge dx 1. Drug rash secondary to Bactrim HPI: see h/p Labs: see lab data Hospital course This is a 26 yo male with no past medical hx presenting with cc rash. Roughly 2 weeks ago, pt was out with friend and noticed bite on right forearm and also bite around right elbow. It was with some swelling and redness and he believes he may have been bitten by a spider at work. 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 He came to [facility]. The bite was not drained but he was rx 2 abx, bactrim and keflex. Shortly after, he visited Dr. Colindres because he felt it was not getting better. Dr. Colindres told him not to take keflex and rx doxycycline instead. Soon after, pt developed rash covering extremities and trunk with associated fever 101. Never happened before. Denies cp, sob, fevers currently, chills, vomiting, diarrhea. This is a 26 yo male with no reported past medical hx presenting with rash 1 Drug rash secondary to bactrim -ID consult. Dr. Merritt. recs appreciated. -NS at 100 cc/hr -benadryl po 25 q 6 prn itchiness -received benadryl and solumedrol in ER -will defer abx to ID -placed on IV linezolid -blood cultures ordered -placed on solumedrol as well 2. GI/DVT ppx -scds -pepcid daily DC instructions Please return if condition worsens. Please take all meds as rx. Please f/u with PMD and dermatology. DC meds 1. PO zyvox for 7 days 2. PO benadryl 3. PO pepcid 4. PO prednison e - Date & Time of H&P Date of H&P: 04/08/17 Time of H&P: 12:33 Discharge Exam - Head Exam Head Exam: ATRAUMATIC, NORMAL INSPECTION, NORMOCEPHALIC - Eye Exam Eye Exam: EOMI - ENT Exam ENT Exam: Mucous Membranes Moist - Neck Exam Neck exam: Full Rom, Normal Inspection - Respiratory Exam Respiratory Exam: NORMAL BREATHING PATTERN, UNREMARKABLE - Cardiovascular Exam Cardiovascular Exam: +S1, +S2 - GI/Abdominal Exam GI & Abdominal Exam: Normal Bowel Sounds - Extremities Exam Extremities exam: full ROM, normal inspection - Neurological Exam Neurological exam: Alert, Oriented x3 - Psychiatric Exam Psychiatric exam: Normal Affect, Normal Mood - Skin Additional comments: Diffuse maculopapular area over trunk and b/l extremities, no vesicles or pustule, improved from day of admission, no skin necrosis, no Nikolsky sign Discharge Plan - Discharge Medications Prescriptions: DiphenhydrAMINE [Benadryl] 25 mg PO Q6 PRN #10 cap PRN Reason: Itching / Pruritus Famotidine [Pepcid] 40 mg PO DAILY #30 tab Prednisone 20 mg PO DAILY #5 tablet predniSONE [Prednisone] 20 mg PO DAILY #5 tab Linezolid [Zyvox] 600 mg PO Q12 #14 tab - Follow Up Plan Condition: STABLE Disposition: HOME/ ROUTINE Instructions: Folliculitis (GEN) Additional Instructions: 1. Follow up with PMD in 1 week. 2. Follow up with Dermatology of choice. 3. Complete antibiotics course. Referrals: Juan F Colindres MD [Primary Care Provider] - <Syed Carpenter - Last Filed: 04/10/17 16:37> Provider - Provider Date of Admission: 04/08/17 12:02 Attending physician: Syed Carpenter MD Primary care physician: Juan F Colindres MD Hospital Course - Lab Results Lab Results: Micro Results 04/08/17 18:00 Naris MRSA Culture (Admit) - Final MRSA NOT DETECTED Most Recent Lab Values WBC 20.6 10^3/ul (4.5-11.0) H D 04/09/17 08:00 RBC 4.22 10^6/uL (3.5-6.1) 04/09/17 08:00 Hgb 11.8 gm/dL (14.0-18.0) L 04/09/17 08:00 Hct 35.9 % (42.0-52.0) L 04/09/17 08:00 MCV 85.1 fL (80.0-105.0) 04/09/17 08:00 MCH 28.0 pg (25.0-35.0) 04/09/17 08:00 MCHC 32.9 g/dl (31.0-37.0) 04/09/17 08:00 RDW 13.4 % (11.5-14.5) 04/09/17 08:00 Plt Count 253 10^3/uL (120.0-450.0) 04/09/17 08:00 MPV 10.6 fl (7.0-11.0) 04/09/17 08:00 Neutrophils % (Manual) 93 % (50.0-70.0) H 04/09/17 08:00 Band Neutrophils % 5 % (0-2) H 04/09/17 08:00 Lymphocytes % (Manual) 2 % (22.0-35.0) L 04/09/17 08:00 Monocytes % (Manual) TEST NOT PERFORMED 04/09/17 08:00 Toxic Granulation 1+ 04/08/17 10:20 Platelet Evaluation Normal (NORMAL) 04/09/17 08:00 Large Platelets Present 04/09/17 08:00 Polychromasia Slight 04/09/17 08:00 Hypochromasia 1+ 04/09/17 08:00 Anisocytosis (manual) 1+ 04/09/17 08:00 Ovalocytes Slight 04/09/17 08:00 Rouleaux 1+ 04/08/17 10:20 pO2 51 mm/Hg (30-55) 04/08/17 14:12 VBG pH 7.35 (7.32-7.43) 04/08/17 14:12 VBG pCO2 38.0 (40-60) L 04/08/17 14:12 VBG HCO3 21.0 mmol/l (21-28) 04/08/17 14:12 VBG Total CO2 22.2 mmol.L (22-28) 04/08/17 14:12 VBG O2 Sat (Calc) 90.6 % (40-65) H 04/08/17 14:12 VBG Base Excess -4.2 mmol/L (0.0-2.0) L 04/08/17 14:12 VBG Potassium 4.1 mmol/L (3.6-5.2) 04/08/17 14:12 Sodium 136.0 mmol/L (132-148) 04/08/17 14:12 Chloride 108.0 mmol/L (98-107) H 04/08/17 14:12 Glucose 186 mg/dl (75-110) H 04/08/17 14:12 Lactate 2.6 mmol/L (0.7-2.1) H 04/08/17 14:12 FiO2 21.0 % 04/08/17 14:12 Sodium 139 mmol/L (132-148) 04/09/17 08:00 Potassium 4.4 mmol/L (3.6-5.0) 04/09/17 08:00 Chloride 109 mmol/L (95-110) 04/09/17 08:00 Carbon Dioxide 23 mmol/L (21-33) 04/09/17 08:00 Anion Gap 11 (10-20) 04/09/17 08:00 BUN 9 mg/dL (7-21) 04/09/17 08:00 Creatinine 0.7 mg/dL (0.5-1.4) 04/09/17 08:00 Est GFR ( Amer) > 60 04/09/17 08:00 Est GFR (Non-Af Amer) > 60 04/09/17 08:00 Random Glucose 112 mg/dL (70-110) H 04/09/17 08:00 Calcium 8.7 mg/dL (8.4-10.5) 04/09/17 08:00 Phosphorus 3.0 mg/dL (2.5-4.5) 04/09/17 08:00 Magnesium 1.8 mg/dL (1.7-2.2) 04/09/17 08:00 Total Bilirubin 0.4 mg/dL (0.2-1.3) 04/09/17 08:00 AST 26 U/L (15-59) 04/09/17 08:00 ALT 45 U/L (7-56) 04/09/17 08:00 Alkaline Phosphatase 62 U/L (38-133) 04/09/17 08:00 Total Protein 6.5 g/dL (5.8-8.3) 04/09/17 08:00 Albumin 3.5 g/dL (3.0-4.8) 04/09/17 08:00 Globulin 3.1 gm/dL 04/09/17 08:00 Albumin/Globulin Ratio 1.1 (1.1-1.8) 04/09/17 08:00 Procalcitonin 1.58 NG/ML (0.19-0.49) H 04/08/17 11:07 TSH 3rd Generation 1.32 mIU/mL (0.46-4.68) 04/09/17 08:00 Venous Blood Potassium 4.1 mmol/L (3.6-5.2) 04/08/17 14:12 Urine Color Yellow (YELLOW) 04/08/17 11:38 Urine Appearance Clear (CLEAR) 04/08/17 11:38 Urine pH 6.0 (4.7-8.0) 04/08/17 11:38 Ur Specific [place] 1.020 (1.005-1.035) 04/08/17 11:38 Urine Protein Negative mg/dL (<30 mg/dL) 04/08/17 11:38 Urine Glucose (UA) Negative mg/dL (NEGATIVE) 04/08/17 11:38 Urine Ketones Negative mg/dL (NEGATIVE) 04/08/17 11:38 Urine Blood Negative (NEGATIVE) 04/08/17 11:38 Urine Nitrate Negative (NEGATIVE) 04/08/17 11:38 Urine Bilirubin Negative (NEGATIVE) 04/08/17 11:38 Urine Urobilinogen 0.2 E.U./dL (<1 E.U./dL) 04/08/17 11:38 Ur Leukocyte Esterase Negative Jaiden/uL (NEGATIVE) 04/08/17 11:38 Urine Opiates Screen Negative (NEGATIVE) 04/08/17 18:00 Urine Methadone Screen Negative (NEGATIVE) 04/08/17 18:00 Ur Barbiturates Screen Negative (NEGATIVE) 04/08/17 18:00 Ur Phencyclidine Scrn Negative (NEGATIVE) 04/08/17 18:00 Ur Amphetamines Screen Negative (NEGATIVE) 04/08/17 18:00 U Benzodiazepines Scrn Negative (NEGATIVE) 04/08/17 18:00 U Oth Cocaine Metabols Negative (NEGATIVE) 04/08/17 18:00 U Cannabinoids Screen Negative (NEGATIVE) 04/08/17 18:00 HIV 1&2 Ag/Ab, 4th Gen Nonreactive (Nonreactive) 04/09/17 08:00 Attending/Attestation - Attestation I have personally seen and examined this patient.: Yes I have fully participated in the care of the patient.: Yes I have reviewed all pertinent clinical information, including history, physical exam and plan: Yes Notes (Text): 04/10/17 16:34 Attending note; Patient seen and examined with resident. Patient is a 26-year-old male admitted with right elbow cellulitis and abscess. Patient was treated with by mouth Keflex and Bactrim as outpatient. Patient had rash after antibiotics therapy. Currently rash resolved. Treated with IV prednisone, Benadryl and Pepcid. Patient will be discharged home with by mouth Zyvox. Follow-up with PMD Dr. Colindres. Follow-up with dermatology as outpatient. Patient has chronic hyperpigmentation in back and leg area Diagnosis; Drug rash Cellulitis 04/10/17 16:36
[2017-04-09] MEDS: MethylPREDNISolone 40 mg Vial IVP SCH (12:32)
[2017-04-09] MEDS: Linezolid 600 mg in D5W 300 ml 600 MG/300 ML BAG IVPB SCH (12:32)
--- NOTE | 2017-04-09 15:43 | CP.PCM.PN ---
Subjective - Date & Time of Evaluation Date of Evaluation: 04/09/17 Time of Evaluation: 11:45 - Subjective Subjective: Comfortable, no pruritus, feels better, no fevers overnight, not in distress, no hematuria, no headache or dizziness, no SOB. Objective - Vital Signs/Intake and Output Vital Signs (last 24 hours): Temp Pulse Resp BP Pulse Ox 98.6 F 71 18 124/78 95 04/09/17 09:49 04/09/17 09:49 04/09/17 09:49 04/09/17 09:49 04/09/17 09:49 Intake and Output: 04/09/17 04/09/17 06:59 18:59 Intake Total 420 Balance 420 - Labs Labs: 04/09/17 08:00 04/09/17 08:00 - Constitutional Appears: Non-toxic, No Acute Distress - Head Exam Head Exam: NORMAL INSPECTION - ENT Exam ENT Exam: Mucous Membranes Moist - Neck Exam Neck Exam: absent: Lymphadenopathy, Meningismus - Respiratory Exam Respiratory Exam: Decreased Breath Sounds - Cardiovascular Exam Cardiovascular Exam: +S1, +S2 - GI/Abdominal Exam GI & Abdominal Exam: Soft. absent: Tenderness - Extremities Exam Additional comments: right forearm with are of cellulitis - Skin Skin Exam: Rash (maculopapular rash with decreasing intensity in erythema ( starting to fade), non-tender, non-pruritic) Assessment and Plan - Assessment and Plan (Free Text) Plan: Assessment Sepsis due to right arm MSSA cellulitis, slowly improving Maculopapular rash, probably due to Bactrim exposure, without evidence of Rah Luis's syndrome Plan Continue Zyvox (day 2), for another 5-7 days patient on steroids for the rash, and should be continued on a tapering regimen as per medical team, with outpatient follow up HIV test should be followed up by the medical team as an outpatient Discussed with Dr. Carpenter
== END 2017-04-09 12:42 | disposition home or self-care (01) | DRG 607 ==
LOC: ED 08:58 → ERH 12:02 → 3RSO 15:53
PROVIDERS: ADMIT Hospitalist; ATTEND Internal Medicine
DX: L27.0 Generalized skin eruption due to drugs and medicaments taken internally (principal); T37.0X5A Adverse effect of sulfonamides, initial encounter; F17.210 Nicotine dependence, cigarettes, uncomplicated; Y92.098 Other place in other non-institutional residence as the place of occurrence of the external cause